=== PATIENT | female | born 1965 | race African-American/Black ===

== ENCOUNTER → 2017-04-23 | Outpatient (CLI) | payer MEDICARE, MEDICAID ==
--- NOTE | 2017-04-23 12:46 | WOMENS IMAGING REPORT ---
EXAM DESCRIPTION: 3D SCREENING MAMMO BILAT COMPLETED DATE/TIME: 04/23/2017 11:22 am REASON FOR STUDY: 3D SCREENING MAMMO; Z12.31 Z12.31 ENCNTR SCREEN MAMMOGRAM FOR MALIGNANT NEOPLASM OF CHI COMPARISON: 12/15/2011 and 04/28/2009. TECHNIQUE: Standard craniocaudal and mediolateral oblique views of each breast recorded using digita l acquisition and breast tomosynthesis. LIMITATIONS: None. FINDINGS: RIGHT BREAST MASSES: The previously evaluated cyst in the upper outer quadrant is unchanged. There is a new small er lesion in the lateral breast best seen on the CC view, located 5-6 cm from the nipple. Based on t omosynthesis imaging, this is probably in the mid to lower portion of the outer breast. Fairly sera h borders on tomosynthesis images. CALCIFICATIONS: No new or suspicious calcifications. ARCHITECTURAL DISTORTION: None. DEVELOPING DENSITY: None. ASYMMETRY: None noted. OTHER: No other significant findings. LEFT BREAST MASSES: No suspicious masses. CALCIFICATIONS: No new or suspicious calcifications. ARCHITECTURAL DISTORTION: None. DEVELOPING DENSITY: None. ASYMMETRY: None noted. OTHER: No other significant findings. Read with the assistance of CAD. .[facility] - R2 Cenova Version 1.3 .[facility] - R2 Cenova Version 1.3 .[facility] - R2 Cenova Version 2.4 .[facility] [place] R2 Cenova Version 2.4 .[facility] - R2 Journalism Intern Version 9.2 IMPRESSION: New circumscribed lesion in the right breast, possibly a cyst. Recommend further evalua tion with ultrasound. Stable mammographic appearance of the left breast. BREAST DENSITY: b. There are scattered areas of fibroglandular density. BIRAD: 0 Incomplete: Needs Additional Imaging Evaluation and/or prior Mammograms for Comparison. RECOMMENDATION: RECOMMENDED FOLLOW-UP: Recommend additional evaluation with ultrasound of the right breast. Recommend routine screening mammography of the left breast. The patient will be contacted for additional imaging. COMMENT: The patient has been notified of the results by letter per [place] requirements. Additional no tification policies are in place for contacting patient with suspicious or incomplete findings. Quality ID #[id number]: The [employer] recommends an annual screening mammogram for women aged 40 years or over. This facility utilizes a reminder system to ensure that all patients receive reminder letters, and/or direct phone calls for appointments. This includes reminders for routine scr eening mammograms, diagnostic mammograms, or other Breast Imaging Interventions when appropriate. Th is patient will be placed in the appropriate reminder system. The [employer] (ACR) has developed recommendations for screening MRI of the breast s in certain patient populations, to be used in conjunction with mammography. Breast MRI surveillanc e may be appropriate for women with more than 20% lifetime risk of developing breast cancer as deter mined by genetic testing, significant family history of the disease, or history of mantle radiation f or Hodgkins Disease. ACR Practice Guidelines 2008. DBT Technology DBT is a type of tomographic mammography. With conventional mammography, overlapping breast tissue ma y make lesions difficult to detect, even with good compression. DBT uses an x-ray tube that rotates a round the breast, taking images at different angles. These images are then combined to create thin sl ices of the breast that the radiologist can view as a 3D reconstruction. The [employer] unit can perform full-field digital mammograms (2D imaging); or DBT (3D imaging); or both, in a combination mode that quickly performs both the mammogram and the tomosynthesis scan while the breast is still compressed. PQRS 6045F: Fluoroscopic imaging is not utilized for breast tomosynthesis. TECHNICAL DOCUMENTATION: FINDING NUMBER: (1) ASSESSMENT: (1) JOB ID: [id number] [employer]- All Rights Reserved
== END ==
LOC: WI 10:10
PROVIDERS: ATTEND Internal Medicine
DX: Z12.31 Encounter for screening mammogram for malignant neoplasm of breast (principal); R92.8 Other abnormal and inconclusive findings on diagnostic imaging of breast
CPT/HCPCS: 77063; G0202; 77067

== ENCOUNTER → 2017-05-22 | Outpatient (CLI) | payer MEDICARE, MEDICAID ==
--- NOTE | 2017-05-22 17:48 | WOMENS IMAGING REPORT ---
EXAM DESCRIPTION: U/S BREAST UNILAT LIMITED COMPLETED DATE/TIME: 05/22/2017 9:49 am REASON FOR STUDY: UNSPECIFIED LUMP N63 N63 UNSPECIFIED LUMP IN BREAST COMPARISON: Mammograms 12/15/2011 Right breast ultrasound 12/19/2011 TECHNIQUE: Real-time and static grayscale imaging performed of the right breast targeted to the area of mammographic concern. Selected color Doppler images recorded. LIMITATIONS: None. FINDINGS: MASS: In the right breast 9 o'clock position, a benign-appearing anechoic simple cyst is p resent, 8 x 7 mm in size. This correlates with the mammographic findings seen on screening mammograp hy 04/23/2017. OTHER: No other significant finding. IMPRESSION: Benign right breast cyst, 9 o'clock position BIRAD: 2 Benign findings. RECOMMENDATION: RECOMMENDED FOLLOW-UP: Please continue yearly bilateral screening mammography. Bertrand smith consider bilateral screening tomosynthesis in April 2018 COMMENT: The [employer] (ACR) has developed recommendations for screening MRI of the breasts in certain patient populations, to be used in conjunction with mammography. Breast MRI s urveillance may be appropriate for women with more than 20% lifetime risk of developing breast cancer as determined by genetic testing, significant family history of the disease, or history of mantle r adiation for Hodgkins Disease. ACR Practice Guidelines 2008. TECHNICAL DOCUMENTATION: JOB ID: [id number] [employer]- All Rights Reserved
== END ==
LOC: WI 09:27
PROVIDERS: ATTEND Internal Medicine
DX: N60.01 Solitary cyst of right breast (principal)
CPT/HCPCS: 76642

== ENCOUNTER → 2018-07-15 | Outpatient (CLI) | payer MEDICARE, MEDICAID ==
[2018-07-15 10:02] LABS: ABSOLUTE EOSINOPHILS # (AUTO) 0.1 10^3/uL (0.0-0.6); ABSOLUTE LYMPHOCYTES (AUTO) 1.2 10^3/uL (0.5-4.7); ABSOLUTE MONOCYTES (AUTO) 0.2 10^3/uL (0.1-1.4); ABSOLUTE NEUT (AUTO) 1.9 10^3/uL (1.7-8.2); BASOPHILS % (AUTO) 0.6 % (0-2); EOSINOPHILS % (AUTO) 1.5 % (0-6); HEMATOCRIT 36.9 % (36.0-47.0); HEMOGLOBIN 12.2 g/dL (12.0-15.5); LYMPHOCYTES % (AUTO) 36.1 % (13-45); MEAN CORPUSCULAR HEMOGLOBIN 30.4 pg (27.0-33.4); MEAN CORPUSCULAR VOLUME 92 fl (80-97); MONOCYTES % (AUTO) 6.6 % (3-13); PLATELET COUNT 247 10^3/uL (150-450); RED BLOOD COUNT 4.01 10^6/uL (3.72-5.28); RED CELL DISTRIBUTION WIDTH 12.6 % (11.5-14.0); SEGMENTED NEUTROPHILS % (AUTO) 55.2 % (42-78); TOTAL CELLS COUNTED % (AUTO) 100 %; WHITE BLOOD COUNT 3.4 10^3/uL (4.0-10.5)
[2018-07-15 10:47] LABS: ALANINE AMINOTRANSFERASE 20 U/L (9-52); ALKALINE PHOSPHATASE 48 U/L (38-126); ANION GAP 8 (5-19); ASPARTATE AMINO TRANSFERASE 14 U/L (14-36); BILIRUBIN,DIRECT 0.2 mg/dL (0.0-0.4); BILIRUBIN,TOTAL 0.4 mg/dL (0.2-1.3); BLOOD UREA NITROGEN 7 mg/dL (7-20); CALCIUM 9.6 mg/dL (8.4-10.2); CARBON DIOXIDE 28 mmol/L (22-30); CHLORIDE 105 mmol/L (98-107); CHOLESTEROL 206.03 mg/dL (0-200); GLUCOSE 86 mg/dL (75-110); POTASSIUM 4.7 mmol/L (3.6-5.0); TOTAL PROTEIN 7.5 g/dL (6.3-8.2); TRIGLYCERIDES 47 mg/dL (<150)
[2018-07-15 10:58] LABS: DIRECT LDL 104 mg/dL (<100)
== END ==
LOC: OD 08:56
PROVIDERS: ATTEND Internal Medicine
DX: E78.5 Hyperlipidemia, unspecified (principal); E11.9 Type 2 diabetes mellitus without complications; D64.9 Anemia, unspecified; R10.9 Unspecified abdominal pain; E03.9 Hypothyroidism, unspecified; E55.9 Vitamin D deficiency, unspecified
CPT/HCPCS: 36415; 80053; 80061; 82306; 83036; 84443; 85025

== ENCOUNTER → 2018-09-04 | Outpatient (CLI) | payer MEDICARE, MEDICAID ==
[2018-09-06 13:38] LABS: THYROID PEROXIDASE (TPO) AB 11 IU/mL (0-34)
[2018-09-06 14:21] LABS: THYROGLOBULIN AB <1.0 IU/mL (0.0-0.9)
== END ==
LOC: OD 15:18
PROVIDERS: ATTEND Internal Medicine
DX: R94.6 Abnormal results of thyroid function studies (principal)
CPT/HCPCS: 36415; 84436; 84481; 86376

== ENCOUNTER → 2018-10-07 | Outpatient (CLI) | payer MEDICARE, MEDICAID ==
[2018-10-07 12:56] LABS: CHOLESTEROL 179.82 mg/dL (0-200); TRIGLYCERIDES 62 mg/dL (<150)
[2018-10-07 13:09] LABS: DIRECT LDL 117 mg/dL (<100)
[2018-10-07 13:13] LABS: FREE T3 4.35 pg/mL (2.77-5.27)
[2018-10-07 13:31] LABS: THYROID STIMULATING HORMONE < 0.01 uIU/mL (0.47-4.68)
== END ==
LOC: OD 10:59
PROVIDERS: ATTEND Internal Medicine
DX: E78.5 Hyperlipidemia, unspecified (principal); E05.90 Thyrotoxicosis, unspecified without thyrotoxic crisis or storm
CPT/HCPCS: 36415; 80061; 84436; 84443; 84481

== ENCOUNTER → 2018-12-06 | Outpatient (CLI) | payer MEDICARE, MEDICAID ==
[2018-12-06 10:36] LABS: ABSOLUTE EOSINOPHILS # (AUTO) 0.1 10^3/uL (0.0-0.6); ABSOLUTE LYMPHOCYTES (AUTO) 1.3 10^3/uL (0.5-4.7); ABSOLUTE MONOCYTES (AUTO) 0.2 10^3/uL (0.1-1.4); ABSOLUTE NEUT (AUTO) 3.2 10^3/uL (1.7-8.2); BASOPHILS % (AUTO) 0.4 % (0-2); HEMATOCRIT 35.3 % (36.0-47.0); LYMPHOCYTES % (AUTO) 26.1 % (13-45); MEAN CORPUSCULAR HGB CONC 33.9 g/dL (32.0-36.0); MEAN CORPUSCULAR VOLUME 89 fl (80-97); MONOCYTES % (AUTO) 4.7 % (3-13); PLATELET COUNT 248 10^3/uL (150-450); RED BLOOD COUNT 3.99 10^6/uL (3.72-5.28); RED CELL DISTRIBUTION WIDTH 12.8 % (11.5-14.0); SEGMENTED NEUTROPHILS % (AUTO) 66.8 % (42-78); TOTAL CELLS COUNTED % (AUTO) 100 %; WHITE BLOOD COUNT 4.8 10^3/uL (4.0-10.5)
[2018-12-06 10:53] LABS: CHOLESTEROL 215.85 mg/dL (0-200); TRIGLYCERIDES 66 mg/dL (<150)
[2018-12-06 11:04] LABS: DIRECT LDL 107 mg/dL (<100)
== END ==
LOC: OD 09:21
PROVIDERS: ATTEND Internal Medicine
DX: E55.9 Vitamin D deficiency, unspecified (principal); E78.5 Hyperlipidemia, unspecified; D70.9 Neutropenia, unspecified
CPT/HCPCS: 36415; 80061; 82306; 85025

== ENCOUNTER → 2018-12-16 | Outpatient (CLI) | payer MEDICARE, MEDICAID | LOC: WI 11:26 | PROVIDERS: ATTEND Internal Medicine | DX: Z12.31 Encounter for screening mammogram for malignant neoplasm of breast (principal) | CPT/HCPCS: 77063; 77067 ==

== ENCOUNTER → 2019-02-10 | Outpatient (CLI) | payer MEDICARE, MEDICAID ==
[2019-02-10 09:58] LABS: CHOLESTEROL 210.48 mg/dL (0-200); TRIGLYCERIDES 57 mg/dL (<150)
[2019-02-10 10:21] LABS: DIRECT LDL 112 mg/dL (<100)
== END ==
LOC: OD 08:17
PROVIDERS: ATTEND Internal Medicine
DX: E78.5 Hyperlipidemia, unspecified (principal)
CPT/HCPCS: 36415; 80061

== ENCOUNTER → 2019-04-07 | Outpatient (CLI) | payer MEDICARE, MEDICAID ==
[2019-04-07 11:04] LABS: FREE T3 3.78 pg/mL (2.77-5.27)
[2019-04-07 11:20] LABS: THYROID STIMULATING HORMONE < 0.01 uIU/mL (0.47-4.68)
== END ==
LOC: OD 09:35
PROVIDERS: ATTEND Internal Medicine
DX: E78.5 Hyperlipidemia, unspecified (principal); E05.90 Thyrotoxicosis, unspecified without thyrotoxic crisis or storm; I10 Essential (primary) hypertension; R94.5 Abnormal results of liver function studies
CPT/HCPCS: 36415; 84436; 84443; 84481

== ENCOUNTER → 2019-08-25 | Outpatient (CLI) | payer MEDICARE, MEDICAID ==
[2019-08-25 11:39] LABS: CHOLESTEROL 207.18 mg/dL (0-200); TRIGLYCERIDES 53 mg/dL (<150)
[2019-08-25 11:50] LABS: DIRECT LDL 110 mg/dL (<100)
== END ==
LOC: OD 10:11
PROVIDERS: ATTEND Family Medicine Geriatric Medicine
DX: E78.5 Hyperlipidemia, unspecified (principal); G35 Multiple sclerosis; R89.9 Unspecified abnormal finding in specimens from other organs, systems and tissues; Z79.899 Other long term (current) drug therapy
CPT/HCPCS: 36415; 80061; 84443; 84460

== ENCOUNTER → 2019-10-31 | Outpatient (CLI) | payer MEDICARE, MEDICAID ==
[2019-10-31 11:25] LABS: CHOLESTEROL 210.15 mg/dL (0-200); TRIGLYCERIDES 50 mg/dL (<150)
[2019-10-31 11:36] LABS: DIRECT LDL 96 mg/dL (<100)
--- NOTE | 2019-10-31 13:03 | RADIOLOGY REPORT (SQ) ---
EXAM DESCRIPTION: T SPINE AP/LAT COMPLETED DATE/TIME: 10/31/2019 11:18 am REASON FOR STUDY: SCOLIOSIS, UNSPECIFIED E78.5 HYPERLIPIDEMIA, UNSPECIFIED Z79.899 OTHER [facility] (CURRENT) DRUG THERAPY M41.9 SCOLIOSIS, UNSPECIFIED COMPARISON: None. NUMBER OF VIEWS: Two views. TECHNIQUE: AP and lateral radiographic images acquired of the thoracic spine. LIMITATIONS: None. FINDINGS: MINERALIZATION: Normal. ALIGNMENT: No scoliotic curvature. The normal alignment of the pedicles and spinous processes is pre served. VERTEBRAE: There are 11 rib-bearing thoracic vertebral bodies. The thoracic vertebral body heights a re preserved. There is no fracture. DISCS: The intervertebral disc spaces are preserved. HARDWARE: None in the spine. MEDIASTINUM AND SOFT TISSUES: The cardiomediastinal silhouette is within normal limits. VISUALIZED LUNG ROWELL: Clear. OTHER: No other finding. IMPRESSION: No fracture or malalignment of the thoracic spine. TECHNICAL DOCUMENTATION: JOB ID: [id number] [employer]- All Rights Reserved Reading location - IP/workstation name: [email or web address]
--- NOTE | 2019-10-31 14:55 | RADIOLOGY REPORT (SQ) ---
"EXAM DESCRIPTION: SACRUM AND COCCYX COMPLETED DATE/TIME: 10/31/2019 11:18 am REASON FOR STUDY: SCOLIOSIS, UNSPECIFIED E78.5 HYPERLIPIDEMIA, UNSPECIFIED Z79.899 OTHER NURSING HOME (CURRENT) DRUG THERAPY M41.9 SCOLIOSIS, UNSPECIFIED COMPARISON: None. NUMBER OF VIEWS: Three views. TECHNIQUE: AP, lateral, and tilt views of the sacrum and coccyx. LIMITATIONS: None. FINDINGS: MINERALIZATION: Normal. BONES: No acute fracture or dislocation. No osseous lesion. SOFT TISSUES: Phleboliths. There is no radiopaque foreign body. OTHER: No other finding. IMPRESSION: No acute osseous abnormality of the sacrum and coccyx. TECHNICAL DOCUMENTATION: JOB ID: [id number] [employer] | [employer]- All Rights Reserved Reading location - IP/workstation name: [email or web address]"
--- NOTE | 2019-10-31 15:15 | RADIOLOGY REPORT (SQ) ---
EXAM DESCRIPTION: C SP 4 OR 5 VIEWS; LUMBAR SPINE COMPLETE COMPLETED DATE/TIME: 10/31/2019 11:18 am REASON FOR STUDY: SCOLIOSIS, UNSPECIFIED COMPARISON: None. FINDINGS: Five view cervical spine: No listhesis. No significant cervical spine curvature. No fra cture or worrisome bone lesion. Disc space narrowing with osteophytes, most pronounced C5-6. Noncri tical multilevel foraminal encroachment. Five view lumbosacral spine: No significant malalignment. Discs are fairly well preserved. Facets and posterior elements intact. Moderate stool. No fracture or bone lesion detected. TECHNICAL DOCUMENTATION: JOB ID: [id number] Reading location - IP/workstation name: [email or web address]-
--- NOTE | 2019-10-31 15:15 | RADIOLOGY REPORT (SQ) ---
EXAM DESCRIPTION: C SP 4 OR 5 VIEWS; LUMBAR SPINE COMPLETE COMPLETED DATE/TIME: 10/31/2019 11:18 am REASON FOR STUDY: SCOLIOSIS, UNSPECIFIED COMPARISON: None. FINDINGS: Five view cervical spine: No listhesis. No significant cervical spine curvature. No fra cture or worrisome bone lesion. Disc space narrowing with osteophytes, most pronounced C5-6. Noncri tical multilevel foraminal encroachment. Five view lumbosacral spine: No significant malalignment. Discs are fairly well preserved. Facets and posterior elements intact. Moderate stool. No fracture or bone lesion detected. TECHNICAL DOCUMENTATION: JOB ID: [id number] Reading location - IP/workstation name: [email or web address]-
== END ==
LOC: OD 10:04
PROVIDERS: ATTEND Family Medicine Geriatric Medicine
DX: E78.5 Hyperlipidemia, unspecified (principal); M41.9 Scoliosis, unspecified; Z79.899 Other long term (current) drug therapy
CPT/HCPCS: 36415; 72050; 72070; 72110; 72220; 80061; 84460

== ENCOUNTER → 2019-12-31 | Outpatient (CLI) | payer MEDICARE, MEDICAID ==
[2019-12-31 11:25] LABS: CHOLESTEROL 176.15 mg/dL (0-200); TRIGLYCERIDES 67 mg/dL (<150)
[2019-12-31 11:35] LABS: DIRECT LDL 82 mg/dL (<100)
== END ==
LOC: OD 10:27
PROVIDERS: ATTEND Family Medicine Geriatric Medicine
DX: E78.5 Hyperlipidemia, unspecified (principal); Z79.899 Other long term (current) drug therapy
CPT/HCPCS: 36415; 80061; 84460

== ENCOUNTER → 2020-09-13 | Outpatient (CLI) | payer MEDICARE, MEDICAID ==
[2020-09-13 11:52] LABS: ABSOLUTE EOSINOPHILS # (AUTO) 0.1 10^3/uL (0.0-0.6); ABSOLUTE LYMPHOCYTES (AUTO) 1.2 10^3/uL (0.5-4.7); ABSOLUTE MONOCYTES (AUTO) 0.2 10^3/uL (0.1-1.4); BASOPHILS % (AUTO) 0.5 % (0-2); HEMATOCRIT 35.4 % (36.0-47.0); HEMOGLOBIN 11.9 g/dL (12.0-15.5); LYMPHOCYTES % (AUTO) 33.9 % (13-45); MEAN CORPUSCULAR HEMOGLOBIN 29.2 pg (27.0-33.4); MEAN CORPUSCULAR HGB CONC 33.6 g/dL (32.0-36.0); MEAN CORPUSCULAR VOLUME 87 fl (80-97); MONOCYTES % (AUTO) 5.6 % (3-13); PLATELET COUNT 207 10^3/uL (150-450); RED BLOOD COUNT 4.08 10^6/uL (3.72-5.28); RED CELL DISTRIBUTION WIDTH 12.6 % (11.5-14.0); TOTAL CELLS COUNTED % (AUTO) 100 %; WHITE BLOOD COUNT 3.5 10^3/uL (4.0-10.5)
[2020-09-13 12:16] LABS: ALBUMIN 4.2 g/dL (3.5-5.0); ALKALINE PHOSPHATASE 89 U/L (38-126); ANION GAP 9 (5-19); ASPARTATE AMINO TRANSFERASE 21 U/L (14-36); BILIRUBIN,TOTAL 0.4 mg/dL (0.2-1.3); BLOOD UREA NITROGEN 13 mg/dL (7-20); CALCIUM 9.9 mg/dL (8.4-10.2); CARBON DIOXIDE 30 mmol/L (22-30); CHLORIDE 101 mmol/L (98-107); CHOLESTEROL 170.92 mg/dL (0-200); GLUCOSE 85 mg/dL (75-110); POTASSIUM 4.6 mmol/L (3.6-5.0); TOTAL PROTEIN 7.5 g/dL (6.3-8.2); TRIGLYCERIDES 56 mg/dL (<150)
[2020-09-13 12:27] LABS: DIRECT LDL 69 mg/dL (<100)
[2020-09-14 09:58] LABS: FREE THYROXINE INDEX 2.1 (1.2-4.9)
== END ==
LOC: OD 11:00
PROVIDERS: ATTEND Family Medicine Geriatric Medicine
DX: E78.5 Hyperlipidemia, unspecified (principal); M41.9 Scoliosis, unspecified; Z79.899 Other long term (current) drug therapy
CPT/HCPCS: 36415; 80053; 80061; 84436; 84443; 84479; 85025